=== PATIENT | female | born 1975 | race Caucasian/White ===

== ENCOUNTER 2022-02-01 12:23 | Emergency (ER) | payer OTHER ==
[~2022-02-01] VITALS: Ht 170.2 cm; Wt 59.4 kg
[2022-02-01] MEDS ORDERED: CYCLOBENZAPRINE10 MG PO (14:05)
[2022-02-01] MEDS ORDERED: MEDROL 4MG DOSEP4 MG PO (14:05)
== END 2022-02-01 14:11 | disposition home or self-care (01) ==
LOC: FER 12:23
DX: S29.012A Strain of muscle and tendon of back wall of thorax, initial encounter (principal); Z28.310 Unvaccinated for COVID-19
CPT/HCPCS: 71046; 99283

== ENCOUNTER 2022-02-18 11:42 | Emergency (ER) | payer OTHER ==
[~2022-02-18 11:42] MED LIST: CYCLOBENZAPRINE10 MG PO; MEDROL 4MG DOSEP4 MG PO
[2022-02-18 13:29] LABS: BASOPHIL 0.5 % (0-2); EOSINOPHIL 0.8 % (0-5); HCT 42.2 % (37.0-47.0); HGB 14.5 g/dl (12.5-16.0); LYMPHOCYTE 25.8 % (15-48); MCH 28.7 pg (25.0-31.0); MCHC 34.4 g/dL (32.0-36.0); MCV 83.6 fL (78.0-100.0); MONOCYTE 7.4 % (0-12); MPV 8.9 fL (6.0-9.5); NEUTROPHIL 65.2 % (41-80); NRBC 0; PLT 322 K/uL (150-400); RBC 5.05 M/uL (4.20-5.40); RDW 12.1 % (11.5-14.0); WBC 7.3 K/uL (4.0-10.5)
[2022-02-18 13:31] LABS: BILIRUBIN 1+ mg/dL (NEGATIVE); BLOOD 3+ Ery/uL (NEGATIVE); CLARITY CLEAR (CLEAR); COLOR YELLOW (YELLOW); ECSTASY (MDMA) NEGATIVE (NEGATIVE); GLUCOSE (U) NORMAL (NORMAL); LEUKOCYTES 2+ Leu/uL (NEGATIVE); MARIJUANA (THC) NEGATIVE (NEGATIVE); METHADONE NEGATIVE (NEGATIVE); NITRITE NEGATIVE (NEGATIVE); OPIATES NEGATIVE (NEGATIVE); PROTEIN NEGATIVE (NEGATIVE); SPECIFIC GRAVITY 1.025 (1.001-1.030); UROBILINOGEN 0.2 mg/dL (0.2-1.0)
[2022-02-18 13:32] LABS: AMPHETAMINES POSITIVE (NEGATIVE); BARBITURATES NEGATIVE (NEGATIVE); OXYCODONE NEGATIVE (NEGATIVE)
[2022-02-18 13:39] LABS: BACTERIA TRACE
[2022-02-18 13:40] LABS: CREATININE 0.8 mg/dL (0.51-0.95); POTASSIUM 3.9 mmol/L (3.5-5.1)
== END 2022-02-18 21:23 | disposition home or self-care (01) ==
LOC: FER 11:42
PROVIDERS: Nurse Practitioner Family
DX: R07.81 Pleurodynia (principal); F15.10 Other stimulant abuse, uncomplicated; F17.210 Nicotine dependence, cigarettes, uncomplicated; Z20.822 Contact with and (suspected) exposure to COVID-19; Z28.310 Unvaccinated for COVID-19
CPT/HCPCS: 36415; 71275; 80048; 80305; 81001; 84145; 84484; 85025; 85379; 86140; 93005; Q9967; U0002